=== PATIENT | female | born 1955 | race Caucasian/White ===

== ENCOUNTER 2018-02-25 07:26 | Day surgery (SDC) | payer MEDICAID ==
[~2018-02-25] VITALS: Ht 160 cm; Wt 65.9 kg
[2018-02-25 07:35] VITALS: BP 165/74
[2018-02-25] MEDS ORDERED: GABA-532 PO (07:46)
[2018-02-25] MEDS ORDERED: METO-539 PO (07:46)
[2018-02-25] MEDS ORDERED: LORA0.5T PO (07:46)
[2018-02-25] MEDS ORDERED: fentaNYL/PF 50MCG/1 ML 2ML syringe ONE (07:54)
[2018-02-25] MEDS ORDERED: LIDOcaine Viscous 15ml cup ONE (07:54)
[2018-02-25] MEDS ORDERED: MIDAZolam 5mg/5ml vial ONE (07:54)
[2018-02-25 08:52] VITALS: BP 129/76
[2018-02-25 09:02] VITALS: BP 117/64
[2018-02-25 09:12] VITALS: BP 110/75
[2018-02-25 09:22] VITALS: BP 135/65
== END 2018-02-25 09:34 | disposition home or self-care (01) ==
LOC: GI LAB 07:26
PROVIDERS: ATTEND Internal Medicine Gastroenterology
DX: I85.00 Esophageal varices without bleeding (principal); K76.6 Portal hypertension; K31.89 Other diseases of stomach and duodenum; I10 Essential (primary) hypertension; F17.210 Nicotine dependence, cigarettes, uncomplicated; Z95.5 Presence of coronary angioplasty implant and graft; Z86.19 Personal history of other infectious and parasitic diseases; Z85.828 Personal history of other malignant neoplasm of skin; Z90.710 Acquired absence of both cervix and uterus; Z79.891 Long term (current) use of opiate analgesic; Z79.899 Other long term (current) drug therapy; Z98.890 Other specified postprocedural states; Z88.0 Allergy status to penicillin
CPT/HCPCS: 43235; J2250; J3010; J7030; A4620; G0500

== ENCOUNTER 2018-04-12 05:34 | Inpatient (IN) | payer MEDICAID ==
[2018-04-05 09:56] LABS: BASOPHILS % (AUTO) 0.9 % (0-1); EOSINOPHILS # (AUTO) 0.2 X10'3 (0-0.9); EOSINOPHILS % (AUTO) 4.2 % (0-6); LYMPHOCYTES # (AUTO) 1.3 X10'3 (1.1-4.8); LYMPHOCYTES % (AUTO) 23.3 % (21-51); MEAN CORPUSCULAR HEMOGLOBIN 32.2 PG (27.0-31.0); MEAN CORPUSCULAR HGB CONC 34.6 % (33.0-36.5); MEAN PLATELET VOLUME 8.7 FL (7.4-10.4); MONOCYTES # (AUTO) 0.5 X10'3 (0-0.9); MONOCYTES % (AUTO) 8.5 % (2-12); NEUTROPHILS # (AUTO) 3.4 X10'3 (1.8-7.7); NEUTROPHILS % (AUTO) 63.1 % (42-75); PRE OP HEMATOCRIT 42.3 % (35.0-45.0); PRE OP HEMOGLOBIN 14.6 g/dL (12.0-16.0); PRE OP PLATELET COUNT 137 X10'3 (140-440); RED BLOOD COUNT 4.55 X10'6 (4.20-5.60); RED CELL DISTRIBUTION WIDTH 12.7 % (11.5-14.5)
[2018-04-05 10:05] LABS: PRE OP PROTIME 10.2 SECONDS (9.0-12.0)
[2018-04-05 10:10] LABS: ALBUMIN/GLOBULIN RATIO 0.7 (1.1-1.5); ALKALINE PHOSPHATASE 146 IU/L (46-116); BLOOD UREA NITROGEN 8 MG/DL (7-18); BUN/CREATININE RATIO 13.6 (6.6-38.0); CALCIUM 8.7 MG/DL (8.5-10.1); CHLORIDE 104 MMOL/L (99-107); CREATININE 0.59 MG/DL (0.40-0.90); PRE OP ALT 21 U/L (30-65); PRE OP ANION GAP 5 (8-16); PRE OP AST 32 U/L (10-37); PRE OP BILIRUB, TOTAL 0.6 MG/DL (0.0-1.0); PRE OP GLUCOSE 93 MG/DL (70-104); PRE OP SODIUM 141 MMOL/L (135-145); TOTAL CARBON DIOXIDE 32.2 MMOL/L (24-32); TOTAL PROTEIN 7.3 G/DL (6.4-8.2); eGFR > 90 ML/MIN
[2018-04-05 10:21] LABS: PRE OP POTASSIUM 3.2 MMOL/L (3.4-5.1)
[2018-04-12] VITALS (21 sets, daily range): BP systolic 99–160; BP diastolic 58–88
[~2018-04-12] VITALS: Ht 160 cm; Wt 64.6 kg
[~2018-04-12 05:34] MED LIST: ASPI-611 PO; DOCUMENT DATE & TIME OF BETA-BLOCKER PO ONE; GABA-532 PO; IBUP-24 PO; LORA1TAB PO; METO-539 PO; albuterol 2.5 MG/3 ML nebule NEB ONE; clindamycin-Cleocin 900mg/D5W 50 ML IV ONE; famotidine 20mg tablet PO ONE; ringers solution, lacted 1,000 ML IV SCH; vancomycin inj 1,500 MG in normal saline 300ml IV soln IV ONE
[2018-04-12] MEDS ORDERED: LIDOcaine 1% (10mg/ml) 2ml vial ONE (06:00)
[2018-04-12 06:55] LABS: ISTAT ANION GAP 9 (8-12); ISTAT BUN 5 mg/dL (6-19); ISTAT CL 102 mmol/L (99-107); ISTAT CREATININE 0.5 mg/dL (0.6-1.1); ISTAT GLUCOSE 95 mg/dL (70-104); ISTAT HGB 14.3 g/dl (12.0-16.0); ISTAT Hct 42 %PCV (35-48); ISTAT IONIZED CALCIUM 1.16 mmol/L (1.03-1.32); ISTAT K 3.4 mmol/L (3.5-5.1); ISTAT NA 142 mmol/L (135-145); ISTAT TOTAL CO2 31 mmol/L (24-32); ISTAT eGFR > 90 ML/MIN
[2018-04-12] MEDS ORDERED: neostigmine methylsulfate 1 MG/ML 10ml vial ONE (08:38)
[2018-04-12] MEDS ORDERED: propofol 10mg/ml 20ml vial IV ONE (08:38)
[2018-04-12] MEDS ORDERED: sevoflurane 250ml liquid IH ONE (08:38)
[2018-04-12] MEDS ORDERED: NORMAL SALINE IV ONE ×5 (08:40→13:35)
[2018-04-12] MEDS ORDERED: TRANEXAMIC ACID IV ONE ×5 (08:40→13:35)
[2018-04-12] MEDS ORDERED: midazolam 2 mg/2 ml injection ONE ×2 (08:44→08:45)
[2018-04-12] MEDS ORDERED: fentaNYL/PF 50MCG/1 ML 2ML syringe ONE (08:44)
[2018-04-12] MEDS ORDERED: ROPIVAcaine 0.5% (5mg/ml) 30ml vial ONE ×2 (08:45→09:52)
[2018-04-12] MEDS ORDERED: dexamethasone sod phosphate 4mg/ml inj. ONE ×2 (09:10→10:19)
[2018-04-12] MEDS ORDERED: ketorolac trometh. 30mg/ml inj. ONE (09:52)
[2018-04-12] MEDS ORDERED: vancomycin 1,000mg inj ONE (09:52)
[2018-04-12] MEDS ORDERED: ondansetron/PF 4mg/2ml inj ONE (10:19)
[2018-04-12] MEDS ORDERED: glycopyrrolate 0.2mg/ml inj ONE (10:20)
[2018-04-12] MEDS ORDERED: ringers solution, lacted 1,000 ML IV SCH (10:25)
[2018-04-12] MEDS ORDERED: meperidine/PF 25mg/ml syringe IV PRN ×3 (10:25)
[2018-04-12] MEDS ORDERED: morphine 4 MG/ML inj SYRINge IV PRN ×2 (10:25)
[2018-04-12] MEDS ORDERED: proCHLORperazine 10 MG/2 ml inj IV PRN (10:25)
[2018-04-12] MEDS ORDERED: ondansetron/PF 4mg/2ml inj IV PRN ×2 (10:25→10:35)
[2018-04-12] MEDS ORDERED: HYDROmorphone 1 mg/ml syringe IV PRN ×2 (10:35)
[2018-04-12] MEDS ORDERED: magnesium hydroxide 30ml (MOM) UD suspension PO PRN (10:35)
[2018-04-12] MEDS ORDERED: LORazepam 0.5 MG tablet PO PRN (10:35)
[2018-04-12] MEDS ORDERED: diphenhydrAMINE 25mg capsule PO PRN ×2 (10:35)
[2018-04-12] MEDS ORDERED: acetaminophen 325mg tablet PO PRN (10:35)
[2018-04-12] MEDS ORDERED: bisacodyl 10mg suppository rectal RC PRN (10:35)
[2018-04-12] MEDS: potassium cl 20mEq in 1/2 NS 1,000 ML IV SCH ×3 (13:51→23:16)
[2018-04-12] MEDS: ketorolac tromethamine 15mg/ml inj. IV SCH ×2 (13:52→21:08)
[2018-04-12] MEDS: gabapentin 300mg capsule PO SCH ×2 (13:52→21:06)
[2018-04-12] MEDS: acetaminophen 325mg tablet PO SCH ×2 (13:53→21:07)
[2018-04-12] MEDS ORDERED: cloNIDine hcl/PF 100mcg/ml inj ONE (14:14)
[2018-04-12] MEDS: ceFAZolin 1GM/D5W- ADD-VANTAGE 50 ML IV SCH (16:42)
[2018-04-12] MEDS: oxyCODONE IR 5mg (immed. release) tablet PO PRN (17:47)
[2018-04-12] MEDS ORDERED: vancomycin/NS 1 GM ADD-VANTAGE 250 ML IV SCH (20:00)
[2018-04-12] MEDS ORDERED: aspirin 81mg tablet.DR PO SCH (21:00)
[2018-04-12] MEDS ORDERED: gabapentin 300mg capsule PO SCH (21:00)
[2018-04-12] MEDS ORDERED: sennosides 8.6mg tablet PO SCH (21:00)
[2018-04-12] MEDS ORDERED: metoprolol succinate 25mg (24-HOUR) SR. Tablet PO SCH (21:00)
[2018-04-12] MEDS ORDERED: vancomycin/NS 1 GM ADD-VANTAGE 250 ML IV ONE (21:35)
[2018-04-13] MEDS: ceFAZolin 1GM/D5W- ADD-VANTAGE 50 ML IV SCH
[2018-04-13 02:00] VITALS: BP 112/57
[2018-04-13] MEDS: acetaminophen 325mg tablet PO SCH ×2 (02:36→08:05)
[2018-04-13] MEDS: ketorolac tromethamine 15mg/ml inj. IV SCH ×2 (02:37→08:04)
[2018-04-13] MEDS: oxyCODONE IR 5mg (immed. release) tablet PO PRN ×3 (04:53→12:36)
[2018-04-13 06:00] VITALS: BP 117/55
[2018-04-13 06:25] LABS: BASOPHILS % (AUTO) 0.3 % (0-1); EOSINOPHILS # (AUTO) 0.1 X10'3 (0-0.9); EOSINOPHILS % (AUTO) 1.5 % (0-6); HEMATOCRIT 34.3 % (35.0-45.0); HEMOGLOBIN 11.8 g/dl (12.0-16.0); LYMPHOCYTES # (AUTO) 0.9 X10'3 (1.1-4.8); MEAN CORPUSCULAR HEMOGLOBIN 31.6 PG (27.0-31.0); MEAN CORPUSCULAR HGB CONC 34.3 % (33.0-36.5); MEAN CORPUSCULAR VOLUME 92.1 FL (78-98); MEAN PLATELET VOLUME 9.3 FL (7.4-10.4); MONOCYTES # (AUTO) 0.4 X10'3 (0-0.9); MONOCYTES % (AUTO) 6.2 % (2-12); NEUTROPHILS # (AUTO) 5.2 X10'3 (1.8-7.7); PLATELET COUNT 114 X10'3 (140-440); RED BLOOD COUNT 3.72 X10'6 (4.20-5.60); RED CELL DISTRIBUTION WIDTH 13.4 % (11.5-14.5); WHITE BLOOD COUNT 6.6 X10'3 (4.5-11.0)
[2018-04-13 07:23] LABS: ANION GAP 4 (8-16); CHLORIDE 106 MMOL/L (99-107); SODIUM 139 MMOL/L (135-145)
[2018-04-13] MEDS: gabapentin 300mg capsule PO SCH (08:05)
[2018-04-13 10:00] VITALS: BP 136/86
[2018-04-13] MEDS ORDERED: celeCOXIB 100mg capsule PO SCH (20:00)
[2018-04-14] MEDS ORDERED: acetaminophen 325mg tablet PO PRN (10:35)
== END 2018-04-13 13:47 | disposition home or self-care (01) | DRG 322 ==
LOC: PAS IN 05:34 → EDSTATUS 08:30 → ORTHO 4S 12:09
PROVIDERS: ADMIT Orthopaedic Surgery; ATTEND Orthopaedic Surgery
PROC: 0RRK0J7 Replacement of Left Shoulder Joint with Synthetic Substitute, Glenoid Surface, Open Approach (ICD-10-PCS; principal; 2018-04-12 08:38)
DX: M19.012 Primary osteoarthritis, left shoulder (principal); D62 Acute posthemorrhagic anemia; M75.22 Bicipital tendinitis, left shoulder; F41.9 Anxiety disorder, unspecified; G89.29 Other chronic pain; I10 Essential (primary) hypertension; Z88.0 Allergy status to penicillin
CPT/HCPCS: 36415; 71046; 80047; 80051; 80053; 85025; 85610; 85730; 87070; 93005; 94640; 97110; 97116; 97161; A4565; A6253; A6255; A7000; C1713; C1776; J0690; J0735; J1100; J1170; J1885; J2250; J2405; J2704; J2710; J2795; J3010; J3370; J3490; J7030; J7040; J7120

== ENCOUNTER 2019-03-10 06:20 | Day surgery (SDC) | payer MEDICARE ==
[~2019-03-10] VITALS: Ht 160 cm; Wt 68.2 kg
[~2019-03-10 06:20] MED LIST changes: -DOCUMENT DATE & TIME OF BETA-BLOCKER PO ONE; -albuterol 2.5 MG/3 ML nebule NEB ONE; -clindamycin-Cleocin 900mg/D5W 50 ML IV ONE; -famotidine 20mg tablet PO ONE; -ringers solution, lacted 1,000 ML IV SCH; -vancomycin inj 1,500 MG in normal saline 300ml IV soln IV ONE
[2019-03-10 06:30] VITALS: BP 163/85
[2019-03-10 08:43] VITALS: BP 145/87
[2019-03-10 08:53] VITALS: BP 119/84
[2019-03-10 09:03] VITALS: BP 144/74
[2019-03-10 09:13] VITALS: BP 135/75
== END 2019-03-10 10:00 | disposition home or self-care (01) ==
LOC: GI LAB 06:20
PROVIDERS: ATTEND Internal Medicine Gastroenterology
DX: I85.00 Esophageal varices without bleeding (principal); K76.6 Portal hypertension; K31.89 Other diseases of stomach and duodenum; K29.70 Gastritis, unspecified, without bleeding
CPT/HCPCS: 43239; G0500; J7040; 88305; 88342; 99152; A4620

== ENCOUNTER 2020-05-19 13:01 | Emergency (ER) | payer MEDICARE, OTHER ==
[~2020-05-19] VITALS: Ht 160 cm; Wt 65.9 kg
[~2020-05-19 13:01] MED LIST changes: -LORA1TAB PO
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
[2020-05-19] MEDS ORDERED: acetaminophen 325mg tablet PO ONE (15:15)
[2020-05-19] MEDS ORDERED: LIDOcaine 5% patch TP ONE (15:15)
[2020-05-19] MEDS ORDERED: ibuprofen tablet 400 MG TABLET PO ONE (15:15)
[2020-05-19 15:53] VITALS: BP 134/68
[2020-05-19] MEDS ORDERED: LIDO700A32 TOP (16:17)
[2020-05-19] MEDS ORDERED: ACET-812 PO (16:17)
[2020-05-19] MEDS ORDERED: HYDR-3965 PO (16:25)
== END 2020-05-19 16:42 | disposition home or self-care (01) ==
LOC: ER 13:01
DX: R07.81 Pleurodynia (principal); I10 Essential (primary) hypertension; J44.9 Chronic obstructive pulmonary disease, unspecified; Z86.19 Personal history of other infectious and parasitic diseases; Z90.710 Acquired absence of both cervix and uterus; Z98.890 Other specified postprocedural states; Z88.0 Allergy status to penicillin; Z79.82 Long term (current) use of aspirin; Z79.899 Other long term (current) drug therapy; Y09 Assault by unspecified means
CPT/HCPCS: 71046; 99284

== ENCOUNTER 2022-04-12 07:22 | Emergency (ER) | payer BC, MEDICAID ==
[~2022-04-12] VITALS: Ht 160 cm; Wt 63.7 kg
[~2022-04-12 07:22] MED LIST changes: +ACET-812 PO; +LIDO700A32 TOP
[2022-04-12] MEDS ORDERED: ondansetron/PF 4mg/2ml inj IV ONE (08:05)
[2022-04-12] MEDS ORDERED: morphine 4 MG/ML inj SYRINge IV ONE (08:05)
[2022-04-12] MEDS ORDERED: MORP15TA PO (09:29)
[2022-04-12 10:40] VITALS: BP 154/74
== END 2022-04-12 10:42 | disposition home or self-care (01) ==
LOC: ER 07:23
DX: S42.491A Other displaced fracture of lower end of right humerus, initial encounter for closed fracture (principal); I10 Essential (primary) hypertension; J44.9 Chronic obstructive pulmonary disease, unspecified; Z88.0 Allergy status to penicillin; Z79.899 Other long term (current) drug therapy; Z79.1 Long term (current) use of non-steroidal anti-inflammatories (NSAID); W19.XXXA Unspecified fall, initial encounter; Y93.89 Activity, other specified; Y92.89 Other specified places as the place of occurrence of the external cause; Y99.8 Other external cause status
CPT/HCPCS: 73020; 73030; 96374; 96375; 99284; J2270; J2405; A4565

== ENCOUNTER 2023-01-23 01:20 | Inpatient (IN) | payer BC, MEDICAID ==
[~2023-01-23] VITALS: Ht 160 cm; Wt 63.6 kg
[2023-01-23] VITALS (16 sets, daily range): BP systolic 102–127; BP diastolic 53–66
[2023-01-23] MEDS ORDERED: pantoprazole 40mg IV 80 MG in normal saline 100ml IV soln 100 ML IV ONE (01:30)
[2023-01-23] MEDS ORDERED: octreotide inj. 1,250 MCG in normal saline 250ml IV soln 250 ML IV ONE (01:30)
[2023-01-23] MEDS ORDERED: octreotide inj. 1,250 MCG in normal saline 250ml IV soln 243.75 ML IV ONE ×4 (01:38)
[2023-01-23] MEDS ORDERED: metoclopramide 5 mg/ml inj IV ONE (02:25)
[2023-01-23] MEDS ORDERED: pantoprazole 40MG/NS 100ML BAG 100 ML IV ONE (02:30)
[2023-01-23 02:37] LABS: BASOPHILS % (AUTO) 0.7 % (0-1); EOSINOPHILS # (AUTO) 0.1 X10'3 (0-0.9); EOSINOPHILS % (AUTO) 2.7 % (0-6); HEMATOCRIT 36.7 % (35.0-45.0); HEMOGLOBIN 12.3 g/dl (12.0-16.0); LYMPHOCYTES # (AUTO) 0.8 X10'3 (1.1-4.8); LYMPHOCYTES % (AUTO) 16.9 % (21-51); MEAN CORPUSCULAR HEMOGLOBIN 31.7 PG (27.0-31.0); MEAN CORPUSCULAR HGB CONC 33.4 g/dL (33.0-36.5); MEAN CORPUSCULAR VOLUME 94.7 FL (78-98); MEAN PLATELET VOLUME 9.4 FL (7.4-10.4); MONOCYTES # (AUTO) 0.4 X10'3 (0-0.9); MONOCYTES % (AUTO) 7.4 % (2-12); NEUTROPHILS # (AUTO) 3.6 X10'3 (1.8-7.7); NEUTROPHILS % (AUTO) 72.3 % (42-75); PLATELET COUNT 88 X10'3 (140-440); RED BLOOD COUNT 3.88 X10'6 (4.20-5.60); RED CELL DISTRIBUTION WIDTH 13.8 % (11.5-14.5)
[2023-01-23 02:38] LABS: APTT 26 SECONDS (22-32)
[2023-01-23 02:40] LABS: ALANINE AMINOTRANSFERASE 30 U/L (12-78); ALBUMIN 2.6 G/DL (3.4-5.0); ALBUMIN/GLOBULIN RATIO 0.7 (1.1-1.5); ALKALINE PHOSPHATASE 109 IU/L (46-116); ANION GAP 5 (8-16); ASPARTATE AMINO TRANSFERASE 35 U/L (10-37); BILIRUBIN,TOTAL 1.8 MG/DL (0.1-1.0); BLOOD UREA NITROGEN 22 MG/DL (7-18); BUN/CREATININE RATIO 39.3 (10.0-20.0); CALCIUM 8.4 MG/DL (8.5-10.1); CHLORIDE 108 MMOL/L (99-107); CREATININE 0.56 MG/DL (0.40-0.90); GLUCOSE 109 MG/DL (70-104); POTASSIUM 4.1 MMOL/L (3.5-5.1); SODIUM 144 MMOL/L (135-145); TOTAL CARBON DIOXIDE 31.2 MMOL/L (24-32); TOTAL PROTEIN 6.2 G/DL (6.4-8.2); eGFR > 90 ML/MIN
--- NOTE | 2023-01-23 03:02 | NUR ---
DORCAS, BROTHER - OK TO GIVE UPDATES TO PER PT PH#: [phone]
[2023-01-23 03:51] LABS: COLOR,URINE YELLOW (Yellow); GLUCOSE, URINE NEGATIVE (Neg); KETONES,URINE NEGATIVE (Neg); LEUKOCYTE ESTERASE ,URINE NEGATIVE (Neg); NITRITES, URINE NEGATIVE (Neg); OCCULT BLOOD,URINE TRACE-INTACT (Neg); PROTEIN,URINE NEGATIVE (Neg)
[2023-01-23 03:55] LABS: UA COLLECTION TYPE CLN CATCH MIDSTREAM
[2023-01-23 03:56] LABS: CLARITY,URINE SLIGHTLY CLOUDY (Clear)
[2023-01-23 04:09] LABS: BACTERIA,URINE FEW /HPF (Neg); SQUAMOUS EPITHELIAL CELL,UR FEW /LPF (FEW); TRANSITIONAL EPI CELLS,URINE FEW /HPF; WBC,URINE 0-4 /HPF (0-4)
[2023-01-23 05:30] LABS: HEMATOCRIT 34.1 % (35.0-45.0); HEMOGLOBIN 11.5 g/dl (12.0-16.0); MEAN CORPUSCULAR HEMOGLOBIN 32.3 PG (27.0-31.0); MEAN CORPUSCULAR HGB CONC 33.9 g/dL (33.0-36.5); MEAN CORPUSCULAR VOLUME 95.5 FL (78-98); MEAN PLATELET VOLUME 9.7 FL (7.4-10.4); PLATELET COUNT 83 X10'3 (140-440); RED BLOOD COUNT 3.57 X10'6 (4.20-5.60); RED CELL DISTRIBUTION WIDTH 13.8 % (11.5-14.5)
[2023-01-23] MEDS ORDERED: morphine 2 MG/ML inj. syringe IV PRN ×2 (05:45)
[2023-01-23] MEDS ORDERED: normal saline 1000ml 1,000 ML IV SCH (05:45)
[2023-01-23] MEDS ORDERED: mag hydrox/Alum hydrox/simeth 30ml oral suspension PO PRN (05:45)
[2023-01-23] MEDS ORDERED: diphenhydrAMINE 50 mg/ml inj IV PRN (05:45)
[2023-01-23] MEDS ORDERED: magnesium hydroxide 30ml (MOM) UD suspension PO PRN (05:45)
[2023-01-23] MEDS ORDERED: ondansetron 4mg rapidly disintigrating tab PO PRN (05:45)
[2023-01-23] MEDS ORDERED: acetaminophen 325mg tablet PO PRN ×2 (05:45)
[2023-01-23] MEDS ORDERED: diphenhydrAMINE 25mg capsule PO PRN (05:45)
[2023-01-23] MEDS ORDERED: bisacodyl 10mg suppository rectal RC PRN (05:45)
[2023-01-23] MEDS ORDERED: HYDROcodone/acetaminophen 5mg/325mg tablet PO PRN (05:45)
[2023-01-23] MEDS ORDERED: acetaminophen 650mg rectal suppository RC PRN (05:45)
[2023-01-23] MEDS ORDERED: octreotide inj. 500 MCG in normal saline 100ml IV soln 97.5 ML IV SCH (05:50)
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
[2023-01-23] MEDS ORDERED: octreotide inj. 1,250 MCG in normal saline 250ml IV soln 243.75 ML IV SCH (06:24)
[2023-01-23] MEDS: pantoprazole 40MG/NS 100ML BAG 100 ML IV SCH ×3 (06:25→20:00)
[2023-01-23 07:36] LABS: APTT 28 SECONDS (22-32)
[2023-01-23 07:37] LABS: HEMOGLOBIN A1C 4.8 % (4.5-6.2)
[2023-01-23 07:55] LABS: LIPASE < 50 U/L (73-393); MAGNESIUM 1.7 MG/DL (1.5-2.4); PHOSPHORUS 3.2 MG/DL (2.3-4.5)
[2023-01-23] MEDS: docusate sod 100mg capsule PO SCH ×2 (08:00→20:00)
[2023-01-23 08:17] LABS: CREATINE KINASE 36 U/L (26-192)
[2023-01-23] MEDS ORDERED: fentaNYL/PF 50MCG/1 ML 2ML syringe ONE (09:04)
[2023-01-23] MEDS ORDERED: MIDAZolam 1 MG/ML 5ML VIAL ONE (09:04)
[2023-01-23] MEDS ORDERED: LIDOcaine Viscous 15ml cup ONE (09:04)
[2023-01-23] MEDS: ondansetron/PF 4mg/2ml inj IV PRN (11:29)
--- NOTE | 2023-01-23 18:30 | NUR ---
Received report from primary care nurse Dominique MCCRAY. Assumed patient care. Patient is awake and alert on room 1LNC. In no apparent distress. Call light and items of frequent use within reach. Will continue to monitor for changes.
[2023-01-23] MEDS ORDERED: temazepam 15mg capsule PO PRN (21:00)
[2023-01-24] MEDS ORDERED: octreotide inj. 500 MCG in normal saline 100ml IV soln 97.5 ML IV SCH (01:30)
[2023-01-24 02:00] VITALS: BP 120/53
--- NOTE | 2023-01-24 04:15 | NUR ---
Phoned MD Easley. Patient reporting inability to void. Bladder scan showed 350mL. Obtained order to straight cath. Patient also very agitated trying to get out of bed. Obtained an order for valium after explaining to MD. Will impliment.
[2023-01-24] MEDS ORDERED: diazepam inj 5 MG/ML inj. IV PRN (04:30)
[2023-01-24 06:00] VITALS: BP 129/56
--- NOTE | 2023-01-24 06:34 | NUR ---
Reported off to Dominique MCCRAY. Patient is resting with relaxed and unlabored respirations on 1.5LNC. In no apparent distress. Bed alarm on and audible. Call light and items of frequent use within reach.
[2023-01-24 07:07] LABS: BASOPHILS % (AUTO) 0.4 % (0-1); EOSINOPHILS # (AUTO) 0.1 X10'3 (0-0.9); HEMOGLOBIN 11.6 g/dl (12.0-16.0); LYMPHOCYTES # (AUTO) 1.1 X10'3 (1.1-4.8); LYMPHOCYTES % (AUTO) 17.7 % (21-51); MEAN CORPUSCULAR HEMOGLOBIN 32.3 PG (27.0-31.0); MEAN CORPUSCULAR VOLUME 95.1 FL (78-98); MEAN PLATELET VOLUME 9.6 FL (7.4-10.4); MONOCYTES # (AUTO) 0.3 X10'3 (0-0.9); MONOCYTES % (AUTO) 5.5 % (2-12); NEUTROPHILS # (AUTO) 4.7 X10'3 (1.8-7.7); NEUTROPHILS % (AUTO) 74.4 % (42-75); PLATELET COUNT 94 X10'3 (140-440); RED BLOOD COUNT 3.58 X10'6 (4.20-5.60); RED CELL DISTRIBUTION WIDTH 13.9 % (11.5-14.5); WHITE BLOOD COUNT 6.3 X10'3 (4.5-11.0)
[2023-01-24 07:21] LABS: ALANINE AMINOTRANSFERASE 27 U/L (12-78); ALBUMIN 2.4 G/DL (3.4-5.0); ALBUMIN/GLOBULIN RATIO 0.7 (1.1-1.5); ALKALINE PHOSPHATASE 87 IU/L (46-116); ANION GAP 7 (8-16); ASPARTATE AMINO TRANSFERASE 43 U/L (10-37); BILIRUBIN,TOTAL 1.2 MG/DL (0.1-1.0); BLOOD UREA NITROGEN 19 MG/DL (7-18); BUN/CREATININE RATIO 37.3 (10.0-20.0); CALCIUM 8.2 MG/DL (8.5-10.1); CHLORIDE 109 MMOL/L (99-107); CHOL/HDL RATIO 3.1 (0.00-4.99); CHOLESTEROL 109 MG/DL (0-200); CREATININE 0.51 MG/DL (0.40-0.90); GLUCOSE 96 MG/DL (70-104); HDL CHOLESTEROL 35 MG/DL (35-60); LDL CHOLESTEROL 63 MG/DL (50-100); SODIUM 143 MMOL/L (135-145); TOTAL CARBON DIOXIDE 26.9 MMOL/L (24-32); TOTAL PROTEIN 5.9 G/DL (6.4-8.2); TRIGLYCERIDES 53 MG/DL (20-135); eGFR > 90 ML/MIN
[2023-01-24 07:22] LABS: POTASSIUM 3.8 MMOL/L (3.5-5.1)
[2023-01-24] MEDS: pantoprazole 40MG/NS 100ML BAG 100 ML IV SCH (08:00)
[2023-01-24] MEDS: docusate sod 100mg capsule PO SCH ×2 (08:00→20:00)
[2023-01-24 11:00] VITALS: BP 132/69
[2023-01-24 15:00] VITALS: BP 131/56
[2023-01-24 18:00] VITALS: BP 136/56
[2023-01-24 18:18] LABS: URINE AMPHETAMINE SCREEN NEGATIVE (Neg); URINE BARBITUATE SCREEN NEGATIVE (Neg); URINE BENZODIAZEPINES SCREEN POSITIVE (Neg); URINE CANNABINOID SCREEN NEGATIVE (Neg); URINE COCAINE SCREEN NEGATIVE (Neg); URINE METHADONE SCREEN NEGATIVE (Neg); URINE OPIATE SCREEN NEGATIVE (Neg); URINE PHENCYCLIDINE SCREEN NEGATIVE (Neg)
--- NOTE | 2023-01-24 18:50 | NUR ---
Problems reprioritized. Patient report given, questions answered & plan of care reviewed with Paty RN, patient stable at transfer of care.
[2023-01-24] MEDS ORDERED: pantoprazole 40mg Tablet.DR PO SCH (20:00)
[2023-01-24] MEDS: gabapentin 300mg capsule PO SCH (20:31)
[2023-01-24 22:00] VITALS: BP 130/61
[2023-01-25 02:00] VITALS: BP 116/61
[2023-01-25] MEDS ORDERED: ringers solution, lactated 500ml IV solution IV ONE (03:25)
[2023-01-25] MEDS: ringers solution, lacted 1,000 ML IV SCH ×3 (03:49→23:12)
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
[2023-01-25 06:00] VITALS: BP 118/45
[2023-01-25 06:50] LABS: BASOPHILS % (AUTO) 0.3 % (0-1); EOSINOPHILS # (AUTO) 0.2 X10'3 (0-0.9); EOSINOPHILS % (AUTO) 4.2 % (0-6); HEMATOCRIT 28.7 % (35.0-45.0); HEMOGLOBIN 9.7 g/dl (12.0-16.0); LYMPHOCYTES # (AUTO) 0.8 X10'3 (1.1-4.8); LYMPHOCYTES % (AUTO) 15.9 % (21-51); MEAN CORPUSCULAR HEMOGLOBIN 32.7 PG (27.0-31.0); MEAN CORPUSCULAR VOLUME 96.2 FL (78-98); MEAN PLATELET VOLUME 9.4 FL (7.4-10.4); MONOCYTES # (AUTO) 0.4 X10'3 (0-0.9); MONOCYTES % (AUTO) 8.1 % (2-12); NEUTROPHILS # (AUTO) 3.5 X10'3 (1.8-7.7); NEUTROPHILS % (AUTO) 71.5 % (42-75); PLATELET COUNT 71 X10'3 (140-440); RED BLOOD COUNT 2.98 X10'6 (4.20-5.60); RED CELL DISTRIBUTION WIDTH 13.6 % (11.5-14.5); WHITE BLOOD COUNT 4.9 X10'3 (4.5-11.0)
[2023-01-25 07:06] LABS: ALANINE AMINOTRANSFERASE 20 U/L (12-78); ALBUMIN 2.1 G/DL (3.4-5.0); ALBUMIN/GLOBULIN RATIO 0.7 (1.1-1.5); ALKALINE PHOSPHATASE 81 IU/L (46-116); ANION GAP 6 (8-16); ASPARTATE AMINO TRANSFERASE 35 U/L (10-37); BILIRUBIN,TOTAL 1.3 MG/DL (0.1-1.0); BLOOD UREA NITROGEN 13 MG/DL (7-18); BUN/CREATININE RATIO 26.5 (10.0-20.0); CHLORIDE 110 MMOL/L (99-107); CREATININE 0.49 MG/DL (0.40-0.90); GLUCOSE 83 MG/DL (70-104); SODIUM 144 MMOL/L (135-145); TOTAL CARBON DIOXIDE 27.7 MMOL/L (24-32); TOTAL PROTEIN 5.1 G/DL (6.4-8.2); eGFR > 90 ML/MIN
[2023-01-25 07:09] LABS: POTASSIUM 2.7 MMOL/L (3.5-5.1)
--- NOTE | 2023-01-25 07:15 | NUR ---
Patient in room PCU 3026. I have received report from Paty MCCRAY and had the opportunity to ask questions and assume patient care.
--- NOTE | 2023-01-25 07:17 | NUR ---
Paged Dr. Salas regarding pts critical potassium. PAGER ID: [phone] MESSAGE: [phone], Shelby Reyes. K+ is 2.7. Dominique [facility] [id number]
[2023-01-25] MEDS ORDERED: morphine 2 MG/ML inj. syringe IV PRN (08:20)
[2023-01-25] MEDS: ondansetron/PF 4mg/2ml inj IV PRN (09:43)
[2023-01-25] MEDS: potassium Cl 20 mEq SR tablet PO PRN ×3 (09:45→21:43)
[2023-01-25 11:00] VITALS: BP 126/66
[2023-01-25] MEDS: pantoprazole 40MG/NS 100ML BAG 100 ML IV SCH ×2 (12:15→21:43)
[2023-01-25 15:00] VITALS: BP 131/63
[2023-01-25] MEDS ORDERED: potassium Cl 20 mEq SR tablet PO PRN ×2 (15:10)
[2023-01-25] MEDS ORDERED: potassium Cl 40MEQ/1/2NS 520ml 520 ML IV PRN (15:10)
[2023-01-25 18:00] VITALS: BP 140/66
--- NOTE | 2023-01-25 19:15 | NUR ---
Problems reprioritized. Patient report given, questions answered & plan of care reviewed with Courtney MCCRAY, patient stable at transfer of care.
[2023-01-25] MEDS: K and/or MAG REPLACEMENT MC SCH (20:00)
[2023-01-25] MEDS: docusate sod 100mg capsule PO SCH (20:00)
[2023-01-25 20:31] LABS: HEMOGLOBIN 10.4 g/dl (12.0-16.0); MEAN CORPUSCULAR HEMOGLOBIN 31.9 PG (27.0-31.0); MEAN CORPUSCULAR HGB CONC 33.6 g/dL (33.0-36.5); MEAN CORPUSCULAR VOLUME 94.8 FL (78-98); MEAN PLATELET VOLUME 9.5 FL (7.4-10.4); PLATELET COUNT 80 X10'3 (140-440); RED BLOOD COUNT 3.27 X10'6 (4.20-5.60); RED CELL DISTRIBUTION WIDTH 13.6 % (11.5-14.5); WHITE BLOOD COUNT 5.1 X10'3 (4.5-11.0)
[2023-01-25] MEDS: gabapentin 300mg capsule PO SCH (21:43)
[2023-01-25 23:00] VITALS: BP 118/54
[2023-01-26 06:21] LABS: BASOPHILS % (AUTO) 0.3 % (0-1); EOSINOPHILS # (AUTO) 0.2 X10'3 (0-0.9); EOSINOPHILS % (AUTO) 4.8 % (0-6); HEMATOCRIT 28.1 % (35.0-45.0); HEMOGLOBIN 9.7 g/dl (12.0-16.0); LYMPHOCYTES # (AUTO) 0.8 X10'3 (1.1-4.8); LYMPHOCYTES % (AUTO) 19.1 % (21-51); MEAN CORPUSCULAR HEMOGLOBIN 32.7 PG (27.0-31.0); MEAN CORPUSCULAR HGB CONC 34.4 g/dL (33.0-36.5); MEAN PLATELET VOLUME 9.9 FL (7.4-10.4); MONOCYTES # (AUTO) 0.4 X10'3 (0-0.9); MONOCYTES % (AUTO) 9.6 % (2-12); NEUTROPHILS # (AUTO) 2.9 X10'3 (1.8-7.7); NEUTROPHILS % (AUTO) 66.2 % (42-75); PLATELET COUNT 70 X10'3 (140-440); RED BLOOD COUNT 2.96 X10'6 (4.20-5.60); WHITE BLOOD COUNT 4.3 X10'3 (4.5-11.0)
[2023-01-26 06:31] LABS: ALANINE AMINOTRANSFERASE 20 U/L (12-78); ALBUMIN 2.2 G/DL (3.4-5.0); ALBUMIN/GLOBULIN RATIO 0.8 (1.1-1.5); ALKALINE PHOSPHATASE 84 IU/L (46-116); ANION GAP 9 (8-16); ASPARTATE AMINO TRANSFERASE 30 U/L (10-37); BILIRUBIN,TOTAL 1.1 MG/DL (0.1-1.0); BLOOD UREA NITROGEN 7 MG/DL (7-18); BUN/CREATININE RATIO 14.6 (10.0-20.0); CALCIUM 7.9 MG/DL (8.5-10.1); CHLORIDE 111 MMOL/L (99-107); CREATININE 0.48 MG/DL (0.40-0.90); GLUCOSE 89 MG/DL (70-104); POTASSIUM 3.6 MMOL/L (3.5-5.1); SODIUM 147 MMOL/L (135-145); TOTAL CARBON DIOXIDE 27.4 MMOL/L (24-32); TOTAL PROTEIN 5.1 G/DL (6.4-8.2); eGFR > 90 ML/MIN
--- NOTE | 2023-01-26 06:37 | NUR ---
Patient report given, questions answered & plan of care reviewed with MAHENDRA Renee
[2023-01-26 07:00] VITALS: BP 124/55
[2023-01-26] MEDS: pantoprazole 40MG/NS 100ML BAG 100 ML IV SCH (08:00)
[2023-01-26] MEDS: docusate sod 100mg capsule PO SCH (08:00)
[2023-01-26] MEDS: K and/or MAG REPLACEMENT MC SCH (08:00)
[2023-01-26 11:57] VITALS: BP 142/63
[2023-01-26] MEDS ORDERED: pantoprazole 40mg Tablet.DR PO SCH (20:00)
== END 2023-01-26 14:17 | DRG 377 ==
LOC: ER 01:20 → ED HOLD 05:48 → ER 06:10 → EDBEDREQ 08:14 → PCU 3S 08:36
PROVIDERS: ADMIT Family Medicine; ATTEND Internal Medicine
PROC: 0DB68ZX Excision of Stomach, Via Natural or Artificial Opening Endoscopic, Diagnostic (ICD-10-PCS; principal; 2023-01-23)
DX: K27.4 Chronic or unspecified peptic ulcer, site unspecified, with hemorrhage (principal); E43 Unspecified severe protein-calorie malnutrition; G93.41 Metabolic encephalopathy; N39.0 Urinary tract infection, site not specified; D62 Acute posthemorrhagic anemia; B95.2 Enterococcus as the cause of diseases classified elsewhere; G89.4 Chronic pain syndrome; E87.6 Hypokalemia; B96.20 Unspecified Escherichia coli [E. coli] as the cause of diseases classified elsewhere; I73.9 Peripheral vascular disease, unspecified; I10 Essential (primary) hypertension; D69.6 Thrombocytopenia, unspecified; J44.9 Chronic obstructive pulmonary disease, unspecified; K74.60 Unspecified cirrhosis of liver; B19.20 Unspecified viral hepatitis C without hepatic coma; Z88.0 Allergy status to penicillin; Z79.82 Long term (current) use of aspirin; Z79.899 Other long term (current) drug therapy; Z68.24 Body mass index [BMI] 24.0-24.9, adult
CPT/HCPCS: 36415; 43239; 70450; 71045; 80053; 80061; 80305; 81001; 82550; 83036; 83690; 83735; 83880; 84100; 85025; 85027; 85610; 85730; 86885; 86900; 86901; 87077; 87081; 87088; 87186; 97116; 97161; 97530; 97535; 99152; 99285; A4615; A4620; C1758; C9113; G0378; J2250; J2270; J2354; J2405; J2765; J3010; J3360; J3490; J7030; J7050; J7120

== ENCOUNTER 2023-11-15 07:08 | Day surgery (SDC) | payer MEDICARE, MEDICAID ==
[2023-11-15] VITALS (8 sets, daily range): BP systolic 118–147; BP diastolic 62–89; PULSE 68–88; RESP 14–16; TEMP 98; O2SAT 97
[~2023-11-15] VITALS: Ht 160 cm; Wt 66.2 kg
[~2023-11-15 07:08] MED LIST changes: -ACET-812 PO; -IBUP-24 PO; -LIDO700A32 TOP
[2023-11-15] MEDS ORDERED: FURO20TA4 PO (07:33)
[2023-11-15] MEDS ORDERED: POTA-366 PO (07:33)
[2023-11-15] MEDS ORDERED: TRAZ-251 PO (07:33)
[2023-11-15] MEDS ORDERED: PANT40TA54 PO (07:33)
[2023-11-15] MEDS ORDERED: SPIR25TA5 PO (07:33)
[2023-11-15] MEDS ORDERED: ERGO500093 PO (07:33)
[2023-11-15] MEDS ORDERED: normal saline 1000ml 1,000 ML IV PRN (07:45)
[2023-11-15] MEDS: albumin 25% 100mL bottle x 1 IV PRN (10:00)
== END 2023-11-15 11:00 | disposition home or self-care (01) ==
LOC: SSTAY O 07:08
PROVIDERS: ATTEND Internal Medicine Critical Care Medicine
DX: R18.8 Other ascites (principal); K74.60 Unspecified cirrhosis of liver; I25.10 Atherosclerotic heart disease of native coronary artery without angina pectoris; E78.2 Mixed hyperlipidemia; F41.8 Other specified anxiety disorders; Z79.899 Other long term (current) drug therapy
CPT/HCPCS: 49083; C1729; P9047; A6258

== ENCOUNTER 2024-01-04 06:56 | Day surgery (SDC) | payer MEDICARE, MEDICAID ==
[~2024-01-04] VITALS: Ht 160 cm; Wt 69.3 kg
[2024-01-04] VITALS (13 sets, daily range): BP systolic 103–148; BP diastolic 53–94; PULSE 74–91; RESP 16–18; TEMP 97.7; O2SAT 92–100
[~2024-01-04 06:56] MED LIST changes: +ERGO500093 PO; +FURO20TA4 PO; -METO-539 PO; +PANT40TA54 PO; +POTA-366 PO; +SPIR25TA5 PO; +TRAZ-251 PO
[2024-01-04] MEDS ORDERED: ALBU10.7 INH (07:23)
[2024-01-04] MEDS ORDERED: HYDR-3686 PO (07:23)
[2024-01-04] MEDS: albumin 25% 100mL bottle x 1 IV PRN (07:40)
== END 2024-01-04 10:55 | disposition home or self-care (01) ==
LOC: SSTAY O 06:56
PROVIDERS: ATTEND Internal Medicine Critical Care Medicine
DX: R18.8 Other ascites (principal); Z87.891 Personal history of nicotine dependence
CPT/HCPCS: 49083; A6258; C1729; P9047; Z7610

== ENCOUNTER 2024-01-08 19:31 | Emergency (ER) | payer MEDICARE, MEDICAID ==
[~2024-01-08] VITALS: Ht 157.5 cm; Wt 56.0 kg
[~2024-01-08 19:31] MED LIST changes: +ALBU10.7 INH; +HYDR-3686 PO
[2024-01-08 19:38] VITALS: BP 126/68; PULSE 87; O2SAT 94
[2024-01-08 19:47] VITALS: RESP 14
[2024-01-08 20:55] LABS: BASOPHILS % (AUTO) 0.5 % (0-1); EOSINOPHILS # (AUTO) 0.2 X10'3 (0-0.9); EOSINOPHILS % (AUTO) 3.4 % (0-6); HEMATOCRIT 39.3 % (35.0-45.0); HEMOGLOBIN 13.3 g/dl (12.0-16.0); LYMPHOCYTES # (AUTO) 0.7 X10'3 (1.1-4.8); LYMPHOCYTES % (AUTO) 13.4 % (21-51); MEAN CORPUSCULAR HEMOGLOBIN 32.1 PG (27.0-31.0); MEAN CORPUSCULAR HGB CONC 33.9 g/dL (33.0-36.5); MEAN CORPUSCULAR VOLUME 94.6 FL (78-98); MEAN PLATELET VOLUME 7.5 FL (7.4-10.4); MONOCYTES # (AUTO) 0.6 X10'3 (0-0.9); MONOCYTES % (AUTO) 10.6 % (2-12); NEUTROPHILS # (AUTO) 3.8 X10'3 (1.8-7.7); NEUTROPHILS % (AUTO) 72.1 % (42-75); PLATELET COUNT 159 X10'3 (140-440); RED BLOOD COUNT 4.15 X10'6 (4.20-5.60); WHITE BLOOD COUNT 5.2 X10'3 (4.5-11.0)
[2024-01-08 21:04] LABS: ALBUMIN 2.6 G/DL (3.4-5.0); ANION GAP 3 (8-16); BLOOD UREA NITROGEN 16 MG/DL (7-18); BUN/CREATININE RATIO 22.5 (10.0-20.0); CALCIUM 8.4 MG/DL (8.5-10.1); CHLORIDE 102 MMOL/L (99-107); CREATININE 0.71 MG/DL (0.40-0.90); GLUCOSE 116 MG/DL (70-104); PRO BRAIN NATRIURETIC PEPTIDE 135 PG/ML (0-125); SODIUM 137 MMOL/L (135-145); TOTAL CARBON DIOXIDE 32.1 MMOL/L (24-32); eCRCL 58 ML/MIN; eGFR 81 ML/MIN
[2024-01-09 05:50] VITALS: TEMP 98
== END 2024-01-09 05:54 | disposition home or self-care (01) ==
LOC: ER 19:32
DX: S01.91XA Laceration without foreign body of unspecified part of head, initial encounter (principal); S09.90XA Unspecified injury of head, initial encounter; I10 Essential (primary) hypertension; J44.9 Chronic obstructive pulmonary disease, unspecified; Z90.710 Acquired absence of both cervix and uterus; Z98.890 Other specified postprocedural states; Z88.0 Allergy status to penicillin; Z79.82 Long term (current) use of aspirin; Z79.899 Other long term (current) drug therapy; W01.0XXA Fall on same level from slipping, tripping and stumbling without subsequent striking against object, initial encounter; Y93.89 Activity, other specified; Y92.89 Other specified places as the place of occurrence of the external cause; Y99.8 Other external cause status
CPT/HCPCS: 36415; 70450; 71045; 80048; 83880; 84484; 85025; 93005; 99285

== ENCOUNTER 2024-02-08 11:05 | Emergency (ER) | payer MEDICARE, MEDICAID ==
[~2024-02-08] VITALS: Ht 157.5 cm; Wt 70.0 kg
[2024-02-08] MEDS: LIDOcaine 1%/PF 5ML 10 MG/ML VIAL SQ ONE (15:45)
[2024-02-08 19:42] VITALS: TEMP 97.8
[2024-02-08 20:23] VITALS: BP 115/67; PULSE 80; RESP 18; O2SAT 97
== END 2024-02-08 20:29 | disposition home or self-care (01) ==
LOC: ER 11:06
DX: R18.8 Other ascites (principal); I10 Essential (primary) hypertension; J44.9 Chronic obstructive pulmonary disease, unspecified; Z88.0 Allergy status to penicillin; Z79.82 Long term (current) use of aspirin; Z79.899 Other long term (current) drug therapy; Z90.710 Acquired absence of both cervix and uterus
CPT/HCPCS: 49083; 99285; A6402; Z7610; A6449

== ENCOUNTER 2024-03-03 07:37 | Day surgery (SDC) | payer MEDICARE, MEDICAID ==
[2024-03-03] VITALS (7 sets, daily range): BP systolic 109–132; BP diastolic 60–74; PULSE 60–68; RESP 12–16; O2SAT 95–97
[~2024-03-03] VITALS: Ht 160 cm; Wt 59.1 kg
[2024-03-03] MEDS ORDERED: normal saline 1000ml 1,000 ML IV PRN (08:10)
[2024-03-03] MEDS ORDERED: ONDA-243 PO (09:11)
[2024-03-03] MEDS ORDERED: ACET-1008 PO (09:11)
[2024-03-03] MEDS: albumin 25% 100mL bottle x 1 IV PRN (11:52)
== END 2024-03-03 13:20 ==
LOC: SSTAY O 07:37
PROVIDERS: ATTEND Radiology Vascular & Interventional Radiology
DX: R18.8 Other ascites (principal); K74.60 Unspecified cirrhosis of liver; B19.20 Unspecified viral hepatitis C without hepatic coma; I10 Essential (primary) hypertension; I25.10 Atherosclerotic heart disease of native coronary artery without angina pectoris; J44.9 Chronic obstructive pulmonary disease, unspecified; Z88.0 Allergy status to penicillin
CPT/HCPCS: 49083; A6258; C1729; P9047; Z7610

== ENCOUNTER 2025-05-14 06:24 | Day surgery (SDC) | payer MEDICARE, MEDICAID ==
[~2025-05-14] VITALS: Ht 160 cm; Wt 54.0 kg
[2025-05-14] VITALS (7 sets, daily range): BP systolic 100–132; BP diastolic 50–65; PULSE 66–73; RESP 14–18; TEMP 98.6; O2SAT 93–100
[~2025-05-14 06:24] MED LIST changes: +ACET-1008 PO; -ALBU10.7 INH; -ASPI-611 PO; -ERGO500093 PO; -FURO20TA4 PO; +FURO40TA4 PO; -GABA-532 PO; +GABA300C PO; -HYDR-3686 PO; +LIDOcaine 2% Viscous 15ml cup MM ONE; +MIDO2.5T PO; -PANT40TA54 PO; +POTA-208 PO; -POTA-366 PO; +SPIR100T5 PO; -SPIR25TA5 PO; +TRAM50TA2 PO; -TRAZ-251 PO; +ringers solution, lacted 1,000 ML IV SCH
--- NOTE | 2025-05-14 07:48 | ELECTROCARDIOGRAPH REPORT ---
[facility] Test Date: 2025-05-14 Test Time: 07:46:22 Pat Name: SOURAV MEJIA Department: [facility]GI [facility] Patient ID: [facility]-[id number] Room: Gender: F Shank Turner: gus : 1955 Requested By: JOHNY WILSON Order Number: [id number] Reading MD: Dr. JONO Baez Measurements Intervals Benedict Rate: 73 P: 44 MN: 112 QRS: 75 QRSD: 86 T: 64 QT: 394 QTc: 435 Interpretive Statements Sinus rhythm Borderline short MN interval Electronically Signed On 05-14-2025 16:51:[address] JONO Baez Please click the below link to view image of tracing.
[2025-05-14] MEDS ORDERED: LIDOcaine 2% (20mg/ml) 5ml vial ONE (09:20)
== END 2025-05-14 10:20 | disposition home or self-care (01) ==
LOC: GI LAB 06:24
PROVIDERS: ATTEND Internal Medicine Gastroenterology
DX: D50.0 Iron deficiency anemia secondary to blood loss (chronic) (principal); K76.6 Portal hypertension; K74.60 Unspecified cirrhosis of liver; K31.89 Other diseases of stomach and duodenum; I86.4 Gastric varices; I85.10 Secondary esophageal varices without bleeding; J44.9 Chronic obstructive pulmonary disease, unspecified; I73.9 Peripheral vascular disease, unspecified; K21.9 Gastro-esophageal reflux disease without esophagitis; F17.290 Nicotine dependence, other tobacco product, uncomplicated; Z79.899 Other long term (current) drug therapy; Z90.710 Acquired absence of both cervix and uterus; Z98.890 Other specified postprocedural states; Z88.0 Allergy status to penicillin
CPT/HCPCS: 43239; 82948; 88305; 88342; 93005; A4618; J2003; J7120; Z7512; Z7610; 43244